=== PATIENT | female | born 1945 | race Caucasian/White ===

== ENCOUNTER 2016-05-11 10:09 | Emergency (ER) | payer MEDICARE, OTHER ==
--- NOTE | 2016-05-11 11:00 | ER Document Report ---
ED Medical Screen (RME) - General Chief Complaint: High Blood Sugar Stated Complaint: BLOOD SUGAR PROBLEMS Notes: 70-year-old female patient with type II diabetes reports one-week history of cough congestion which is getting worse. There is now a green to thick yellow sputum and nasal discharge. Feeling lightheaded. Now is having urinary frequency. She did get a flu shot this year. Her blood sugars have been running high for the past 2 days. She takes Lantus, metformin, and Glucovance with a total dose of 3000 mg per day of metformin. I have greeted and performed a rapid initial assessment of this patient. A comprehensive ED assessment and evaluation of the patient, analysis of test results and completion of the medical decision making process will be conducted by additional ED providers. TRAVEL OUTSIDE OF THE [place] IN LAST 30 DAYS: No - Related Data Allergies/Adverse Reactions: No Known Drug Allergies Allergy (Verified 05/11/16 10:21) Past Medical History - Past Medical History Cardiac Medical History: Reports: Hx Hypercholesterolemia Neurological Medical History: Denies: Hx Seizures Endocrine Medical History: Reports: Hx Diabetes Mellitus Type 1 Renal/ Medical History: Reports: Hx Kidney Stones. Denies: Hx Peritoneal Dialysis GI Medical History: Reports: Hx Gastroesophageal Reflux Disease Past Surgical History: Reports: Hx Kidney (Renal Surgery) - stents Physical Exam - Vital signs Vitals: Temp Pulse Resp BP Pulse Ox 98.3 F 88 16 137/79 H 97 05/11/16 10:21 05/11/16 10:21 05/11/16 10:21 05/11/16 10:21 05/11/16 10:21 Course - Vital Signs Vital signs: Temp Pulse Resp BP Pulse Ox 98.3 F 88 16 137/79 H 97 05/11/16 10:21 05/11/16 10:21 05/11/16 10:21 05/11/16 10:21 05/11/16 10:21
--- NOTE | 2016-05-11 11:25 | ER Document Report ---
ED Blood Sugar Problem - General Chief Complaint: High Blood Sugar Stated Complaint: BLOOD SUGAR PROBLEMS Mode of Arrival: Ambulatory Information source: Patient TRAVEL OUTSIDE OF THE [place] IN LAST 30 DAYS: No - HPI Onset: Last week Onset/Duration: Gradual Quality of pain: Achy Severity: Mild Associated symptoms: Weakness. denies: Confusion, Increased thirst, Frequent urination, Sweating Similar symptoms previously: Yes - NOT RECENT Recently seen / treated by doctor: No - Related Data Allergies/Adverse Reactions: No Known Drug Allergies Allergy (Verified 05/11/16 10:21) Past Medical History - General Information source: Patient - Social History Smoking Status: Never Smoker Cigarette use (# per day): No Chew tobacco use (# tins/day): No Frequency of alcohol use: None Drug Abuse: None Lives with: Family Family History: Reviewed & Not Pertinent, Other - Gallbladder disease Patient has suicidal ideation: No Patient has homicidal ideation: No - Past Medical History Cardiac Medical History: Reports: Hx Hypercholesterolemia Pulmonary Medical History: Reports: None EENT Medical History: Reports: None Neurological Medical History: Reports: None. Denies: Hx Seizures Endocrine Medical History: Reports: Hx Diabetes Mellitus Type 1 Renal/ Medical History: Reports: Hx Kidney Stones. Denies: Hx Peritoneal Dialysis GI Medical History: Reports: Hx Gastroesophageal Reflux Disease Psychiatric Medical History: Reports: None Past Surgical History: Reports: Hx Kidney (Renal Surgery) - stents - Immunizations Hx Pneumococcal Vaccination: 08/07/09 Review of Systems - Review of Systems Constitutional: denies: Chills, Fever EENT: See HPI, Tearing, Nose congestion, Sinus pressure, Sinus discharge. denies: Ear pain, Throat pain Cardiovascular: No symptoms reported Respiratory: Cough. denies: Sputum Gastrointestinal: No symptoms reported Genitourinary: Dysuria, Frequency Female Genitourinary: No symptoms reported, Post menopausal Musculoskeletal: No symptoms reported Skin: No symptoms reported Neurological/Psychological: No symptoms reported Physical Exam - Vital signs Vitals: Temp Pulse Resp BP Pulse Ox 98.3 F 88 16 137/79 H 97 05/11/16 10:21 05/11/16 10:21 05/11/16 10:21 05/11/16 10:21 05/11/16 10:21 Interpretation: Normal. No: Tachycardic, Tachypneic - General General appearance: Appears well, Alert In distress: None - HEENT Head: Normocephalic Eyes: Normal Conjunctiva: Normal Ears: Normal Nasal: Normal Mouth/Lips: Normal Pharynx: Post nasal drainage Neck: Normal - Respiratory Respiratory status: No respiratory distress Breath sounds: Normal - Cardiovascular Rhythm: Regular Heart sounds: Normal auscultation Murmur: No - Abdominal Inspection: Normal Distension: No distension Bowel sounds: Normal - Extremities General upper extremity: Normal inspection General lower extremity: Normal inspection - Neurological Neuro grossly intact: Yes Cognition: Normal Orientation: AAOx4 - Psychological Associated symptoms: Normal affect, Normal mood - Skin Skin Temperature: Warm Skin Moisture: Dry Skin Color: Normal Skin Turgor: Elastic Course - Vital Signs Vital signs: Temp Pulse Resp BP Pulse Ox 98.3 F 88 16 137/79 H 97 05/11/16 10:21 05/11/16 10:21 05/11/16 10:21 05/11/16 10:21 05/11/16 10:21 - Laboratory Result Diagrams: 05/11/16 11:15 05/11/16 11:15 Laboratory results interpreted by me: 05/11/16 05/11/16 05/11/16 11:15 11:15 11:15 BUN 21 H Glucose 122 H Hemoglobin A1c % 6.3 H Urine Protein 100 H Urine Nitrite POSITIVE H Ur Leukocyte Esterase MODERATE H Discharge - Discharge Clinical Impression: Urinary tract infection Qualifiers: Urinary tract infection type: acute cystitis Hematuria presence: without hematuria Qualified Code(s): N30.00 - Acute cystitis without hematuria Sinusitis Qualifiers: Sinusitis location: unspecified location Chronicity: subacute Qualified Code(s) : J01.90 - Acute sinusitis, unspecified Condition: Stable Disposition: HOME, SELF-CARE Instructions: Trimethoprim-Sulfa ([facility]), Urinary Tract Infection ([facility]), IV Antibiotics ([facility]), Sinusitis ([facility]) Additional Instructions: REST, DRINK PLENTY OF FLUIDS. TAKE SEPTRA DIRECTED UNTIL IT'S ALL GONE (2 WEEKS). CONTINUE YOUR USUAL MEDS. FOLLOW UP WITH YOUR PRIMARY CARE PROVIDER. Prescriptions: Sulfamethoxazole/Trimethoprim [Sulfamethoxazole-Tmp Ds Tablet] 1 each PO BID # 30 tablet Referrals: SIMIN KHALIL MD [Primary Care Provider] - Follow up as needed
[2016-05-11 11:28] LABS: ABSOLUTE EOSINOPHILS # (AUTO) 0.1 10^3/uL (0.0-0.6); ABSOLUTE LYMPHOCYTES (AUTO) 1.8 10^3/uL (0.5-4.7); ABSOLUTE MONOCYTES (AUTO) 0.7 10^3/uL (0.1-1.4); ABSOLUTE NEUT (AUTO) 5.4 10^3/uL (1.7-8.2); BASOPHILS % (AUTO) 0.6 % (0-2); EOSINOPHILS % (AUTO) 1.5 % (0-6); HEMATOCRIT 40.5 % (36.0-47.0); HEMOGLOBIN 13.8 g/dL (12.0-15.5); HGB HCT DIFFERENCE 0.9; LYMPHOCYTES % (AUTO) 22.7 % (13-45); MEAN CORPUSCULAR HEMOGLOBIN 30.8 pg (27.0-33.4); MEAN CORPUSCULAR HGB CONC 34.2 g/dL (32.0-36.0); MEAN CORPUSCULAR VOLUME 90 fl (80-97); MONOCYTES % (AUTO) 9.1 % (3-13); RED BLOOD COUNT 4.49 10^6/uL (3.72-5.28); RED CELL DISTRIBUTION WIDTH 13.2 % (11.5-14.0); SEGMENTED NEUTROPHILS % (AUTO) 66.1 % (42-78); WHITE BLOOD COUNT 8.1 10^3/uL (4.0-10.5)
[2016-05-11 11:33] LABS: APPEARANCE,URINE SLIGHTLY-CLOUDY; BILIRUBIN,URINE NEGATIVE (NEGATIVE); GLUCOSE, URINE NEGATIVE (NEGATIVE); KETONES,URINE NEGATIVE (NEGATIVE); LEUKOCYTE ESTERASE,URINE MODERATE (NEGATIVE); NITRITE,URINE POSITIVE (NEGATIVE); PROTEIN,URINE 100 mg/dL (NEGATIVE); URINE SPECIFIC GRAVITY 1.016; UROBILINOGEN,URINE NEGATIVE mg/dL (<2.0)
[2016-05-11 11:51] LABS: ALANINE AMINOTRANSFERASE 25 U/L (9-52); ALBUMIN 4.1 g/dL (3.5-5.0); ALKALINE PHOSPHATASE 61 U/L (38-126); ANION GAP 14 (5-19); ASPARTATE AMINO TRANSFERASE 16 U/L (14-36); BILIRUBIN,DIRECT 0.2 mg/dL (0.0-0.4); BILIRUBIN,TOTAL 0.5 mg/dL (0.2-1.3); BLOOD UREA NITROGEN 21 mg/dL (7-20); CALCIUM 10.2 mg/dL (8.4-10.2); CARBON DIOXIDE 27 mmol/L (22-30); CHLORIDE 104 mmol/L (98-107); CREATININE RESULT 0.68 mg/dL (0.52-1.25); GLUCOSE 122 mg/dL (75-110); POTASSIUM 4.1 mmol/L (3.6-5.0); SODIUM 144.9 mmol/L (137-145); TOTAL PROTEIN 6.9 g/dL (6.3-8.2)
[2016-05-11] MEDS ORDERED: CEFTRIAXONE 1 GM/D5W RTU 50 ML IV ONE (12:01)
[2016-05-11 13:44] VITALS: BP 119/65
== END 2016-05-11 13:45 | disposition home or self-care (01) ==
LOC: ER 10:09
DX: N30.00 Acute cystitis without hematuria (principal); J01.90 Acute sinusitis, unspecified; E78.00 Pure hypercholesterolemia, unspecified; E10.9 Type 1 diabetes mellitus without complications; Z87.442 Personal history of urinary calculi
CPT/HCPCS: 99284; 96365; 36415; 87086; 85025; 87088; 80053; 81001; 87186; 83036; 71020; J0696

== ENCOUNTER → 2016-06-14 | Outpatient (CLI) | payer MEDICARE, OTHER | LOC: WI 12:18 | PROVIDERS: ATTEND Family Medicine | DX: Z12.31 Encounter for screening mammogram for malignant neoplasm of breast (principal) | CPT/HCPCS: 77067; G0202 ==

== ENCOUNTER 2016-12-27 13:17 | Inpatient (IN) | payer MEDICARE, OTHER ==
[2016-12-27] MEDS ORDERED: NORMAL SALINE 1000 ML 1,000 ML IV ONE ×2 (13:35→15:43)
--- NOTE | 2016-12-27 13:36 | ER Document Report ---
ED Medical Screen (RME) - General Chief Complaint: Fever Stated Complaint: FEVER Time Seen by Provider: 12/27/16 13:35 Notes: Patient has fever and mid back pain as well as a mild cough. She also has some nausea. TRAVEL OUTSIDE OF THE [place] IN LAST 30 DAYS: No - Related Data Allergies/Adverse Reactions: No Known Drug Allergies Allergy (Verified 12/27/16 13:20) Home Medications: Current Home Medications Exenatide Microspheres [Bydureon Pen] 2 mg SQ Q7D 12/27/16 [History] Glyburide 5 mg PO DAILY 12/27/16 [History] Metformin HCl [Metformin HCl] 1 tab PO BID 12/27/16 [History] Past Medical History - Past Medical History Cardiac Medical History: Reports: Hx Hypercholesterolemia, Hx Hypertension Neurological Medical History: Denies: Hx Seizures Endocrine Medical History: Reports: Hx Diabetes Mellitus Type 1 Renal/ Medical History: Reports: Hx Kidney Stones. Denies: Hx Peritoneal Dialysis GI Medical History: Reports: Hx Gastroesophageal Reflux Disease Past Surgical History: Reports: Hx Appendectomy, Hx Kidney (Renal Surgery) - stents Physical Exam - Vital signs Vitals: Temp Pulse Resp BP Pulse Ox 98.3 F 119 H 20 131/89 H 94 12/27/16 13:20 12/27/16 13:20 12/27/16 13:20 12/27/16 13:20 12/27/16 13:20 Course - Vital Signs Vital signs: Temp Pulse Resp BP Pulse Ox 98.3 F 119 H 20 131/89 H 94 12/27/16 13:20 12/27/16 13:20 12/27/16 13:20 12/27/16 13:20 12/27/16 13:20
--- NOTE | 2016-12-27 14:27 | ER Document Report ---
ED Fever - General Chief Complaint: Fever Stated Complaint: FEVER Time Seen by Provider: 12/27/16 13:35 Notes: The patient is a 71-year-old female who presents with 1 day of fever up to 102.7 and right flank pain. She also has nasal congestion and a dry cough. Patient is noticing intermittent dysuria, but denies shortness of breath, rash, recent travel, diarrhea, constipation, abdominal pain, chest pain, leg swelling , headache, neck stiffness or sick contacts. TRAVEL OUTSIDE OF THE [place] IN LAST 30 DAYS: No - Related Data Allergies/Adverse Reactions: No Known Drug Allergies Allergy (Verified 12/27/16 13:20) Home Medications: Current Home Medications Exenatide Microspheres [Bydureon Pen] 2 mg SQ Q7D 12/27/16 [History] Glyburide 5 mg PO DAILY 12/27/16 [History] Metformin HCl [Metformin HCl] 1 tab PO BID 12/27/16 [History] Past Medical History - General Information source: Patient - Social History Smoking Status: Never Smoker Chew tobacco use (# tins/day): No Frequency of alcohol use: None Drug Abuse: None Family History: Reviewed & Not Pertinent, Other - Gallbladder disease Patient has suicidal ideation: No Patient has homicidal ideation: No - Past Medical History Cardiac Medical History: Reports: Hx Hypercholesterolemia, Hx Hypertension Neurological Medical History: Denies: Hx Seizures Endocrine Medical History: Reports: Hx Diabetes Mellitus Type 1, Hx Diabetes Mellitus Type 2 Renal/ Medical History: Reports: Hx Kidney Stones. Denies: Hx Peritoneal Dialysis GI Medical History: Reports: Hx Gastroesophageal Reflux Disease Past Surgical History: Reports: Hx Appendectomy, Hx Kidney (Renal Surgery) - stents - Immunizations Hx Pneumococcal Vaccination: 08/07/09 Review of Systems - Review of Systems Notes: REVIEW OF SYSTEMS: CONSTITUTIONAL: +fevers, -chills EENT: -eye pain, -difficulty swallowing, -nasal congestion CARDIOVASCULAR:-chest pain, -syncope. RESPIRATORY: +cough, -SOB GASTROINTESTINAL: -abdominal pain, -nausea, -vomiting, -diarrhea GENITOURINARY: +dysuria, -hematuria MUSCULOSKELETAL: +back pain, -neck pain SKIN: -rash or skin lesions. HEMATOLOGIC: -easy bruising or bleeding. LYMPHATIC: -swollen, enlarged glands. NEUROLOGICAL: -altered mental status or loss of consciousness, -headache, - neurologic symptoms PSYCHIATRIC: -anxiety, -depression. ALL OTHER SYSTEMS REVIEWED AND NEGATIVE. Physical Exam - Vital signs Vitals: Temp Pulse Resp BP Pulse Ox 98.3 F 119 H 20 131/89 H 94 12/27/16 13:20 12/27/16 13:20 12/27/16 13:20 12/27/16 13:20 12/27/16 13:20 - Notes Notes: PHYSICAL EXAMINATION: GENERAL: Well-appearing, well-nourished and in no acute distress. HEAD: Atraumatic, normocephalic. EYES: Pupils equal round and reactive to light, extraocular movements intact, sclera anicteric, conjunctiva are normal. ENT: nares patent, oropharynx clear without exudates. Moist mucous membranes. NECK: Normal range of motion, supple without lymphadenopathy LUNGS: Breath sounds clear to auscultation bilaterally and equal. No wheezes rales or rhonchi. HEART: Tachycardia. ABDOMEN: Soft, nontender, normoactive bowel sounds. No guarding, no rebound. No masses appreciated. BACK: Right CVA tenderness. EXTREMITIES: Normal range of motion, no pitting or edema. No cyanosis. NEUROLOGICAL: Cranial nerves grossly intact. Normal speech, normal gait. Normal sensory and motor exams. PSYCH: Normal mood, normal affect. SKIN: Warm, Dry, normal turgor, no rashes or lesions noted. Course - Re-evaluation Re-evalutation: Patient appears very well when she is sitting. She has right CVA tenderness, fever, tachycardia and evidence of a UTI on urinalysis. Will begin Rocephin for presumed pyelonephritis. Her lactate is also normal. Pt remains tachycardic and she becomes near syncopal when she stands. She has positive orthostatic vital signs. Due to the near syncope and pyelonephritis, will admit patient to the hospital for IV Abx, IV fluids and further monitoring. Her PMD is Dr. Hamilton. 12/27/16 17:[address] Johnson and will admit patient as Inpatient to [facility]. - Vital Signs Vital signs: Temp Pulse Resp BP Pulse Ox 98.3 F 122 H 20 149/91 H 94 12/27/16 13:20 12/27/16 17:00 12/27/16 13:20 12/27/16 17:00 11/21/17 13:20 - Laboratory Result Diagrams: 12/27/16 14:10 12/27/16 14:10 Laboratory results interpreted by me: 12/27/16 12/27/16 12/27/16 13:45 14:10 14:10 Lymphocytes % 9.7 L VBG pH 7.46 H VBG pCO2 33.6 L Urine Protein 30 H Ur Leukocyte Esterase MODERATE H - Diagnostic Test Radiology reviewed: Image reviewed, Reports reviewed Radiology results interpreted by me: CXR: NAD Discharge - Discharge Clinical Impression: Pyelonephritis, Orthostatic hypotension Condition: Fair Disposition: ADMITTED INPATIENT Admitting Provider: Hospitalist - [place] [facility] Admitted: Telemetry Additional Instructions: PYELONEPHRITIS: Your evaluation shows evidence of pyelonephritis. This is an infection in the kidney. Typical symptoms are fever, pain in the flank, pain on urination, and frequent urination. Many cases of pyelonephritis can be treated at home. Hospital care may be necessary for patients who are very ill, or elderly or . Pyelonephritis is treated with antibiotics. Be sure to take all the medication as prescribed. Drink plenty of liquids (about three quarts per day) . You may take acetaminophen for fever. You should feel significantly improved within two days. You should have a recheck of your urine in about one week to insure that the infection is gone. Return for a re-examination if your symptoms worsen in any way -- such as high fever, shaking chills, severe weakness or dizziness, severe pain, or inability to pass your urine. ANTIBIOTIC THERAPY: You have been given an antibiotic prescription. It's important that you take all the medication, unless instructed otherwise by your physician. Failure to complete the entire course can result in relapse of your condition. Common side effects of antibiotics include nausea, intestinal cramping, or diarrhea. Women may develop vaginal yeast infections, and babies can get yeast (thrush) in the mouth following the use of antibiotics. Contact your physician if you develop significant side effects from this medication. Allergy to this antibiotic can result in hives, wheezing, faintness, or itching. If symptoms of allergy occur, stop the medication and call the doctor. ROCEPHIN: You have been given an injection of an antibiotic called Rocephin ( ceftriaxone). Sometimes the injection must be combined with antibiotic pills. For some infections, such as an uncomplicated ear infection, Rocephin provides all the antibiotic that's needed. The antibiotic will be in your body for about two days. For serious infections, we usually repeat doses of Rocephin daily. Side effects are very unusual following a shot. Women may develop vaginal yeast infections, and babies can get yeast (thrush) in the mouth following the use of antibiotics. Contact your physician if you have symptoms with this medication. Allergy to this antibiotic can result in hives, wheezing, faintness, or itching. If symptoms of allergy occur, call the doctor at once. CEPHALEXIN: The antibiotic you've been prescribed is a member of the cephalosporin class. This type of antibiotic covers a wide variety of infections, including those of the skin, lungs, and urinary tract. It's useful for staph infections. This antibiotic is slightly similar to the penicillin family. In rare cases , a person who is allergic to penicillin will also be allergic to this medication. If you have had a severe allergic reaction to penicillin, and have not taken this antibiotic since that time, notify your doctor. Antibiotics which cover many germs ("broad spectrum" antibiotics) are more likely to cause diarrhea or "yeast" infections. Women prone to vaginal yeast problems may suffer an attack after taking this antibiotic. In infants, oral thrush (white spots "stuck" on the cheek) or yeast diaper rash may result. See your doctor if these problems occur. Call at once if you develop itching, hives , shortness of breath, or lightheadedness. USE OF ACETAMINOPHEN (Tylenol): Acetaminophen may be taken for pain relief or fever control. It's much safer than aspirin, offering a wider range of "safe" dosages. It is safe during . Some brand names are Tylenol, Panadol, Datril, Anacin 3, Tempra, and Liquiprin. Acetaminophen can be repeated every four hours. The following are maximum recommended dosages: >89 pounds or adults 650 mg to 900 mg Acetaminophen can be repeated every four hours. Maximum dose not to exceed 4000 mg a day. FOLLOW-UP CARE: If you have been referred to a physician for follow-up care, call the physician s office for an appointment as you were instructed or within the next two days. If you experience worsening or a significant change in your symptoms, notify the physician immediately or return to the Emergency Department at any time for re-evaluation. Prescriptions: Cephalexin Monohydrate [Keflex 500 mg Capsule] 500 mg PO TID 7 Days capsule Forms: Elevated Blood Pressure Referrals: SIMIN HAMILTON MD [Primary Care Provider] - Follow up as needed
[2016-12-27 14:29] LABS: ABSOLUTE LYMPHOCYTES (AUTO) 0.9 10^3/uL (0.5-4.7); ABSOLUTE MONOCYTES (AUTO) 1.1 10^3/uL (0.1-1.4); ABSOLUTE NEUT (AUTO) 7.4 10^3/uL (1.7-8.2); BASOPHILS % (AUTO) 0.4 % (0-2); EOSINOPHILS % (AUTO) 0.3 % (0-6); HEMATOCRIT 40.4 % (36.0-47.0); HEMOGLOBIN 14.1 g/dL (12.0-15.5); HGB HCT DIFFERENCE 1.9; LYMPHOCYTES % (AUTO) 9.7 % (13-45); MEAN CORPUSCULAR HEMOGLOBIN 31.3 pg (27.0-33.4); MEAN CORPUSCULAR VOLUME 89 fl (80-97); MONOCYTES % (AUTO) 11.9 % (3-13); RED BLOOD COUNT 4.52 10^6/uL (3.72-5.28); RED CELL DISTRIBUTION WIDTH 13.8 % (11.5-14.0); SEGMENTED NEUTROPHILS % (AUTO) 77.7 % (42-78); VENOUS BLOOD BASE EXCESS 0.3 mmol/L; VENOUS BLOOD HCO3 23.4 mmol/L (20-32); VENOUS BLOOD PCO2 33.6 mmHg (35-63); VENOUS BLOOD PH 7.46 (7.30-7.42); WHITE BLOOD COUNT 9.5 10^3/uL (4.0-10.5)
[2016-12-27 14:44] LABS: APPEARANCE,URINE SLIGHTLY-CLOUDY; BILIRUBIN,URINE NEGATIVE (NEGATIVE); GLUCOSE, URINE NEGATIVE (NEGATIVE); KETONES,URINE NEGATIVE (NEGATIVE); LEUKOCYTE ESTERASE,URINE MODERATE (NEGATIVE); NITRITE,URINE NEGATIVE (NEGATIVE); PROTEIN,URINE 30 mg/dL (NEGATIVE); URINE SPECIFIC GRAVITY 1.017; UROBILINOGEN,URINE NEGATIVE mg/dL (<2.0)
[2016-12-27] MEDS ORDERED: CEFTRIAXONE 1 GM/D5W RTU 1 GM/50 ML RTUPB IV ONE (14:46)
[2016-12-27 14:57] LABS: ALANINE AMINOTRANSFERASE 30 U/L (9-52); ALBUMIN 4.1 g/dL (3.5-5.0); ALKALINE PHOSPHATASE 59 U/L (38-126); ANION GAP 15 (5-19); ASPARTATE AMINO TRANSFERASE 21 U/L (14-36); BILIRUBIN,DIRECT 0.3 mg/dL (0.0-0.4); BILIRUBIN,TOTAL 0.7 mg/dL (0.2-1.3); BLOOD UREA NITROGEN 17 mg/dL (7-20); CALCIUM 9.2 mg/dL (8.4-10.2); CARBON DIOXIDE 24 mmol/L (22-30); CHLORIDE 103 mmol/L (98-107); CREATININE RESULT 0.82 mg/dL (0.52-1.25); GLUCOSE 88 mg/dL (75-110); POTASSIUM 3.7 mmol/L (3.6-5.0); SODIUM 141.7 mmol/L (137-145); TOTAL PROTEIN 6.6 g/dL (6.3-8.2)
--- NOTE | 2016-12-27 15:23 | RADIOLOGY REPORT (SQ) ---
EXAM DESCRIPTION: CHEST PA/LAT COMPLETED DATE/TIME: 12/27/2016 3:11 pm REASON FOR STUDY: fever/cough COMPARISON: 05/11/2016 EXAM PARAMETERS: NUMBER OF VIEWS: two views TECHNIQUE: Digital Frontal and Lateral radiographic views of the chest acquired. RADIATION DOSE: NA LIMITATIONS: none FINDINGS: LUNGS AND PLEURA: No opacities, masses or pneumothorax. No pleural effusion. MEDIASTINUM AND HILAR STRUCTURES: No masses or contour abnormalities. HEART AND VASCULAR STRUCTURES: Heart normal size. No evidence for failure. BONES: No acute findings. HARDWARE: None in the chest. OTHER: No other significant finding. IMPRESSION: NO SIGNIFICANT RADIOGRAPHIC FINDING IN THE CHEST. TECHNICAL DOCUMENTATION: JOB ID: [id number] [employer]- All Rights Reserved
[2016-12-27] MEDS ORDERED: IBUPROFEN 600 MG TABLET PO ONE (15:43)
[2016-12-27] MEDS ORDERED: ACETAMINOPHEN 325 MG TABLET PO ONE (15:43)
[2016-12-27] MEDS ORDERED: ONDANSETRON HCL INJ/PF 4 MG/2 ML SDV IV PRN (17:23)
[2016-12-27] MEDS ORDERED: MAG HYDROX/AL HYDROX/SIMETH SUSP 30 ML UDCUP PO PRN (17:23)
[2016-12-27] MEDS ORDERED: ACETAMINOPHEN 325 MG TABLET PO PRN (17:30)
[2016-12-27] MEDS ORDERED: DICYCLOMINE HCL 10 MG CAPSULE PO PRN (17:32)
[2016-12-27] MEDS ORDERED: DEXTROSE 50%-WATER 25 GM/50 ML DISP.SYRIN IV PRN ×2 (17:34)
[2016-12-27] MEDS ORDERED: DEXTROSE 40% GEL 15 GM TUBE PO PRN ×2 (17:34)
[2016-12-27] MEDS ORDERED: GLUCAGON,HUMAN RECOMB 1 MG INJ IM PRN (17:34)
[2016-12-27] MEDS ORDERED: MAGNESIUM 200 MG PO SCH (18:00)
[2016-12-27] MEDS: NORMAL SALINE 1000 ML 1,000 ML IV PRN (18:29)
[2016-12-27] MEDS ORDERED: SIMVASTATIN 40 MG TABLET PO SCH (22:00)
[2016-12-27] MEDS: INSULIN LISPRO 100 UNIT/ML 3 ML VIAL SUBCUT PRN (23:07)
[2016-12-28] MEDS: NORMAL SALINE 1000 ML 1,000 ML IV PRN ×2 (05:27→14:24)
[2016-12-28] MEDS ORDERED: LEVOTHYROXINE SODIUM 0.05 MG TABLET PO SCH (06:00)
[2016-12-28] MEDS ORDERED: LANSOPRAZOLE 30 MG TAB.RAP.DR PO SCH (06:00)
[2016-12-28] MEDS ORDERED: LIOTHYRONINE SODIUM 25 MCG TABLET PO SCH (06:00)
[2016-12-28] MEDS ORDERED: INFLUENZA ADLT QUAD (36MOS+) 2017-18 VAC 0.5 ML SYR IM PRN (06:12)
[2016-12-28 06:44] LABS: ANION GAP 13 (5-19); BLOOD UREA NITROGEN 13 mg/dL (7-20); CALCIUM 8.3 mg/dL (8.4-10.2); CARBON DIOXIDE 21 mmol/L (22-30); CHLORIDE 106 mmol/L (98-107); GLUCOSE 147 mg/dL (75-110); POTASSIUM 3.6 mmol/L (3.6-5.0); SODIUM 140.4 mmol/L (137-145)
--- NOTE | 2016-12-28 07:36 | PDOC H&P ---
History of Present Illness Admission Date/PCP: 12/27/16 17:26 SIMIN KHALIL MD Patient complains of: Fever History of Present Illness: CLARIBEL BRUSH is a 71 year old female who presented with a 1 day complaint of fever. Patient states she had a fever of 100.1 during the day for which she took tylenol. During the night she also has a fever but did not take her temperature. Patient states she just took another tylenol. She states that she recently had visitors at the house who had colds. She was concerned that she had come down with something similar, although, she denies and respiratory symptoms. She states she did not feel well and had not eaten much. Patient denies any pain or urination or frequent urination. When asked about urine infections, she states she has had multiple. In the ED patient labs were normal; however , her UA was concerning for a possible UTI. Patient was given ceftriaxone. They attempted to discharge the patient for the ED however she had symptomatic orthostatic hypotension. Hospitalist was called to admit patient for IV hydration and treatment of her UTI. Past Medical History Cardiac Medical History: Reports: Hyperlipidema, Hypertension Neurological Medical History: Denies: Seizures Endocrine Medical History: Reports: Diabetes Mellitus Type 1, Diabetes Mellitus Type 2 GI Medical History: Reports: Gastroesophageal Reflux Disease Past Surgical History Past Surgical History: Reports: Appendectomy Social History Information Source: Patient Smoking Status: Never Smoker Frequency of Alcohol Use: None Hx Recreational Drug Use: No Hx Prescription Drug Abuse: No - Advance Directive Resuscitation Status: Full Code Family History Family History: Other - Gallbladder disease, CAD Parental Family History Reviewed: No Children Family History Reviewed: No Sibling(s) Family History Reviewed.: No Medication/Allergy Home Medications: Allopurinol [Zyloprim 300 Mg Tablet] 300 mg PO DAILY 09/01/11 Aspirin [Aspirin EC 81 mg Tablet] 81 mg PO DAILY 09/01/11 Levothyroxine Sodium [Synthroid 50 Mcg Tablet] 50 mcg PO DAILY 09/01/11 Simvastatin [Zocor 40 mg Tablet] 40 mg PO QHS 09/01/11 Alpha Lipoic Acid [Alpha Lipoic Acid 200 mg Tablet] 200 mg PO DAILY 08/14/14 Cetirizine HCl [All Day Allergy] 10 mg PO DAILY 08/14/14 Cyanocobalamin (Vitamin B-12) [Vitamin B-12] 1,000 mg PO DAILY 08/14/14 Dicyclomine HCl [Bentyl 10 mg Capsule] 10 mg PO Q6HP PRN 08/14/14 Esomeprazole Magnesium [Nexium] 40 mg PO DAILY 08/14/14 Insulin Glargine,Hum.rec.anlog [Lantus] 20 units SUBCUT DAILY 08/14/14 Liothyronine Sodium [Cytomel] 25 mcg PO DAILY 08/14/14 Magnesium [Magnesium Gluconate] 200 mg PO TID 08/14/14 Potassium Chloride [Klor-Con 10 Meq Tablet.sa] 20 meq PO DAILY 08/14/14 Ubidecarenone/Vit E Acet [Co Q-10 100 mg Softgel] 100 mg PO DAILY 08/14/14 Valsartan/Hydrochlorothiazide [Valsartan-Hctz 160-25 mg Tab] 160 mg PO DAILY 10/21 Sulfamethoxazole/Trimethoprim [Sulfamethoxazole-Tmp Ds Tablet] 1 each PO BID # 30 tablet 05/11/16 Cephalexin Monohydrate [Keflex 500 mg Capsule] 500 mg PO TID 7 Days capsule Exenatide Microspheres [Bydureon Pen] 2 mg SQ Q7D 12/27/16 Glyburide 5 mg PO DAILY 12/27/16 Metformin HCl [Metformin HCl] 1 tab PO BID 12/27/16 Allergies/Adverse Reactions: No Known Drug Allergies Allergy (Verified 12/27/16 13:20) Review of Systems Constitutional: PRESENT: anorexia, fever(s). ABSENT: chills, headache(s), weight gain, weight loss Eyes: ABSENT: visual disturbances Ears: ABSENT: hearing changes Cardiovascular: ABSENT: chest pain, dyspnea on exertion, edema, orthropnea, palpitations Respiratory: ABSENT: cough, hemoptysis Gastrointestinal: ABSENT: abdominal pain, constipation, diarrhea, hematemesis, hematochezia, nausea, vomiting Genitourinary: ABSENT: dysuria, hematuria Musculoskeletal: PRESENT: back pain. ABSENT: joint swelling Integumentary: ABSENT: rash, wounds Neurological: ABSENT: abnormal gait, abnormal speech, confusion, dizziness, focal weakness, syncope Psychiatric: ABSENT: anxiety, depression, homidical ideation, suicidal ideation Endocrine: ABSENT: cold intolerance, heat intolerance, polydipsia, polyuria Hematologic/Lymphatic: ABSENT: easy bleeding, easy bruising Physical Exam Vital Signs: Temp Pulse Resp BP Pulse Ox 98.3 F 122 H 20 149/91 H 94 12/27/16 13:20 12/27/16 17:00 12/27/16 13:20 12/27/16 17:00 12/27/16 13:20 General appearance: PRESENT: no acute distress, well-developed, well-nourished Head exam: PRESENT: atraumatic, normocephalic Eye exam: PRESENT: EOMI. ABSENT: scleral icterus Ear exam: PRESENT: normal external ear exam Mouth exam: PRESENT: moist Neck exam: ABSENT: carotid bruit, JVD, lymphadenopathy, thyromegaly Respiratory exam: PRESENT: clear to auscultation diane. ABSENT: rales, rhonchi, wheezes Cardiovascular exam: PRESENT: RRR. ABSENT: diastolic murmur, rubs, systolic murmur Pulses: PRESENT: normal dorsalis pedis pul Vascular exam: PRESENT: normal capillary refill GI/Abdominal exam: PRESENT: normal bowel sounds, soft. ABSENT: distended, guarding, mass, organolmegaly, rebound, tenderness Rectal exam: PRESENT: deferred Extremities exam: PRESENT: full ROM. ABSENT: calf tenderness, clubbing, pedal edema Neurological exam: PRESENT: alert, awake, oriented to person, oriented to place , oriented to time, oriented to situation, CN II-XII grossly intact. ABSENT: motor sensory deficit Psychiatric exam: PRESENT: appropriate affect, normal mood. ABSENT: homicidal ideation, suicidal ideation Skin exam: PRESENT: dry, intact, pallor, warm. ABSENT: cyanosis, rash Results Impressions: Chest X-Ray 12/27/16 13:36 IMPRESSION: NO SIGNIFICANT RADIOGRAPHIC FINDING IN THE CHEST. Assessment & Plan - Diagnosis (1) UTI (urinary tract infection) Is this a current diagnosis for this admission?: Yes Plan: Most likely a early cystitis. 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 Will continue ceftriaxone. Urine cultures pending. (2) HLD (hyperlipidemia) Is this a current diagnosis for this admission?: Yes Plan: Continue statin. (3) HTN (hypertension) Qualifiers: Hypertension type: essential hypertension Qualified Code(s): I10 - Essential (primary) hypertension Is this a current diagnosis for this admission?: Yes Plan: Patient is actually hypotenisve with orthostasis. Will hold bp medications and hydrate overnight. (4) Obesity (BMI 30.0-34.9) Is this a current diagnosis for this admission?: Yes Plan: Patient counseled on diet and physical activity. (5) Orthostatic hypotension Is this a current diagnosis for this admission?: Yes Plan: Most likely due to intravascular depletions. Patient has been febrile, not eating or drinking well and taking diuretic. Will hydrate IV fluids at 125cc/ hr and repeat orthostatics in the am. patient is also on telemetry. (6) Diabetes Qualifiers: Diabetes mellitus type: type 2 Diabetes mellitus complication status: without complication Is this a current diagnosis for this admission?: Yes Plan: Will continue home dose of long acting insulin and start SSI. (7) Hypothyroid Is this a current diagnosis for this admission?: Yes Plan: Continue thyroid replacement. - Time Time Spent: 30 to 50 Minutes Anticipated discharge: Home Within: within 24 hours - Inpatient Certification Medical Necessity: Need For IV Fluids
[2016-12-28] MEDS ORDERED: CEFTRIAXONE 1 GM/D5W RTU 1 GM/50 ML RTUPB IV SCH (10:00)
[2016-12-28] MEDS ORDERED: INSULIN GLARGINE,HUM.REC.ANLOG 1,000 UNIT/10 ML UNIT SUBCUT SCH (10:00)
[2016-12-28] MEDS ORDERED: ASPIRIN 81 MG TABLET, ENT COATED PO SCH (10:00)
[2016-12-28] MEDS ORDERED: CYANOCOBALAMIN 1000 MG PO SCH (10:00)
[2016-12-28] MEDS ORDERED: (PENDING PHARMACY ID) (Cetirizine Hcl [All Day Allergy] 10 MG) PO SCH (10:00)
[2016-12-28] MEDS ORDERED: CETIRIZINE 10 MG TABLET PO SCH (10:00)
[2016-12-28] MEDS ORDERED: CYANOCOBALAMIN (VITAMIN B-12) 1,000 MCG TABLET PO SCH (10:00)
[2016-12-28] MEDS ORDERED: ALLOPURINOL 300 MG TABLET PO SCH (10:00)
[2016-12-28] MEDS ORDERED: POTASSIUM CHLORIDE 10 MEQ TABLET.SA PO SCH (10:00)
[2016-12-28] MEDS: INSULIN LISPRO 100 UNIT/ML 3 ML VIAL SUBCUT PRN (11:31)
[2016-12-28 16:54] VITALS: BP 100/52
--- NOTE | 2016-12-28 21:17 | PDOC DISCHARGE SUMMARY ---
General - Admit/Disc Date/PCP Admission Date/Primary Care Provider: 12/27/16 17:26 SMIIN KHALIL MD Discharge Date: 12/28/16 - Discharge Diagnosis (1) UTI (urinary tract infection) Is this a current diagnosis for this admission?: Yes (2) HLD (hyperlipidemia) Is this a current diagnosis for this admission?: Yes (3) HTN (hypertension) Is this a current diagnosis for this admission?: Yes (4) Obesity (BMI 30.0-34.9) Is this a current diagnosis for this admission?: Yes (5) Orthostatic hypotension Is this a current diagnosis for this admission?: Yes (6) Diabetes Is this a current diagnosis for this admission?: Yes (7) Hypothyroid Is this a current diagnosis for this admission?: Yes - Additional Information Resuscitation Status: Full Code Discharge Activity: Activity As Tolerated Home Medications: Allopurinol [Zyloprim 300 mg Tablet] 300 mg PO DAILY 09/01/11 Aspirin [Ecotrin 81 mg EC Tablet] 81 mg PO DAILY 09/01/11 Levothyroxine Sodium [Synthroid 0.05 mg Tablet] 50 mcg PO DAILY 09/01/11 Simvastatin [Zocor 40 mg Tablet] 40 mg PO QHS 09/01/11 Alpha Lipoic Acid [Alpha Lipoic Acid 200 mg Tablet] 200 mg PO DAILY 08/14/14 Cetirizine HCl [All Day Allergy] 10 mg PO DAILY 08/14/14 Cyanocobalamin (Vitamin B-12) [Vitamin B-12] 1,000 mg PO DAILY 08/14/14 Dicyclomine HCl [Bentyl 10 mg Capsule] 10 mg PO Q6HP PRN 08/14/14 Esomeprazole Magnesium [Nexium] 40 mg PO DAILY 08/14/14 Insulin Glargine,Hum.rec.anlog [Lantus] 20 units SUBCUT DAILY 08/14/14 Liothyronine Sodium [Cytomel] 25 mcg PO DAILY 08/14/14 Magnesium [Magnesium Gluconate] 200 mg PO TID 08/14/14 Potassium Chloride [Klor-Con 10 Meq Tablet.sa] 20 meq PO DAILY 08/14/14 Ubidecarenone/Vit E Acet [Co Q-10 100 mg Softgel] 100 mg PO DAILY 08/14/14 Valsartan/Hydrochlorothiazide [Valsartan-Hctz 160-25 mg Tab] 160 mg PO DAILY 10/21 Sulfamethoxazole/Trimethoprim [Sulfamethoxazole-Tmp Ds Tablet] 1 each PO BID # 30 tablet 05/11/16 Exenatide Microspheres [Bydureon Pen] 2 mg SQ Q7D 12/27/16 Glyburide 5 mg PO DAILY 12/27/16 Metformin HCl 1 tab PO BID 12/27/16 Cephalexin Monohydrate [Keflex 500 mg Capsule] 500 mg PO BID 5 Days #10 capsule 12/28/16 History of Present Illness History of Present Illness: CLARIBEL BRUSH is a 71 year old female who presented with a 1 day complaint of fever and not feeling well. Patient found to have an abnormal UA consistent with UTI. Patient was given dose of ceftiraxone in the ED. Patient found to have symptomatic orthostasis. She was admitted for IV fluids and antibiotics. Hospital Course Hospital Course: Patient admitted for UTI and systomatic orthostatic hypotension. Patient as started on ceftriaxone. Patient has grown klebsiella in past that was susceptible to ceftriaxone. Patient urine growing GNR. Patient received 2 doses of ceftriaxone and will receive 5 days of keflex 500mg po bid. Patient was reassured that the infection was not in her kidney and that all her labs except for her UA were normal. Patient was found to been orthostatic and reported dizziness on standing. Patient blood pressure medication was held and patient received normal saline at 125cc/hr overnight. Patient symptoms resolved this morning. Will continue to follow up patient urine culture if the bacteria is not susceptible then the appropriate antibiotic will be called into her pharmacy [facility] [phone]. Physical Exam Vital Signs: Temp Pulse Resp BP Pulse Ox 98.5 F 99 20 100/52 L 93 12/28/16 16:52 12/28/16 16:52 12/28/16 16:52 12/28/16 16:52 12/28/16 16:52 Intake & Output 12/27/16 12/28/16 12/29/16 06:59 06:59 06:59 Intake Total 1296 Output Total 650 Balance 646 Weight 96.7 kg General appearance: PRESENT: no acute distress, morbidly obese Head exam: PRESENT: atraumatic, normocephalic Eye exam: PRESENT: conjunctiva pink, EOMI, PERRLA. ABSENT: scleral icterus Ear exam: PRESENT: normal external ear exam Mouth exam: PRESENT: moist, tongue midline Neck exam: ABSENT: carotid bruit, JVD, lymphadenopathy, thyromegaly Respiratory exam: PRESENT: clear to auscultation diane. ABSENT: rales, rhonchi, wheezes Cardiovascular exam: PRESENT: RRR. ABSENT: diastolic murmur, rubs, systolic murmur Pulses: PRESENT: normal dorsalis pedis pul Vascular exam: PRESENT: normal capillary refill GI/Abdominal exam: PRESENT: normal bowel sounds, soft. ABSENT: distended, guarding, mass, organolmegaly, rebound, tenderness Rectal exam: PRESENT: deferred Extremities exam: PRESENT: full ROM. ABSENT: calf tenderness, clubbing, pedal edema Neurological exam: PRESENT: alert, awake, oriented to person, oriented to place , oriented to time, oriented to situation, CN II-XII grossly intact. ABSENT: motor sensory deficit Psychiatric exam: PRESENT: appropriate affect, normal mood. ABSENT: homicidal ideation, suicidal ideation Skin exam: PRESENT: dry, intact, warm. ABSENT: cyanosis, rash Results Laboratory Results: 12/28/16 05:09 12/28/16 05:09 Sodium 140.4 Potassium 3.6 Chloride 106 Carbon Dioxide 21 L Anion Gap 13 BUN 13 Creatinine 0.70 Est GFR ( Amer) > 60 Est GFR (Non-Af Amer) > 60 Glucose 147 H Calcium 8.3 L Impressions: Chest X-Ray 12/27/16 13:36 IMPRESSION: NO SIGNIFICANT RADIOGRAPHIC FINDING IN THE CHEST. Qualifiers PATEINT BEING DISCHARGED WITH ANY OF THE FOLLOWING DIAGNOSIS?: No Plan Time Spent: Less than 30 Minutes
[2016-12-29] MEDS ORDERED: INSULIN GLARGINE,HUM.REC.ANLOG 1,000 UNIT/10 ML UNIT SUBCUT SCH (10:00)
== END 2016-12-28 17:45 | disposition home or self-care (01) | DRG 690 ==
LOC: ER 13:17 → EH 17:26 → 4N 21:00
PROVIDERS: ADMIT Internal Medicine; ATTEND Internal Medicine
PROC: 3E0234Z Introduction of Serum, Toxoid and Vaccine into Muscle, Percutaneous Approach (ICD-10-PCS; principal; 2016-12-28)
DX: N30.00 Acute cystitis without hematuria (principal); E78.5 Hyperlipidemia, unspecified; I10 Essential (primary) hypertension; E66.9 Obesity, unspecified; Z68.34 Body mass index [BMI] 34.0-34.9, adult; I95.1 Orthostatic hypotension; E11.9 Type 2 diabetes mellitus without complications; E03.9 Hypothyroidism, unspecified; B96.1 Klebsiella pneumoniae [K. pneumoniae] as the cause of diseases classified elsewhere; K21.9 Gastro-esophageal reflux disease without esophagitis; Z23 Encounter for immunization; Z79.82 Long term (current) use of aspirin; Z79.4 Long term (current) use of insulin; Z79.899 Other long term (current) drug therapy; Z82.49 Family history of ischemic heart disease and other diseases of the circulatory system
CPT/HCPCS: 36415; 71020; 80048; 80053; 81001; 82533; 82803; 82962; 83605; 85025; 87040; 87086; 87088; 87186; 90686; 96361; 96365; 99284; J0696; J1815; J2405; J7030

== ENCOUNTER 2017-06-08 15:58 | Emergency (ER) | payer MEDICARE, OTHER ==
[2017-06-08 16:21] VITALS: BP 125/74
--- NOTE | 2017-06-08 16:40 | ER Document Report ---
HPI - HPI Pain Level: 3 Notes: Patient is a 71-year-old female with a history of hypertension, diabetes, hypothyroid who presents to the ED complaining of a dry semi-productive cough 10 days. Patient states that she has been using some cold medicines with minimal relief. She still eating and drinking without difficulties. She is urinating normally and having normal bowel movements. Patient states that she is ambulatory without any chest pains and without development of dyspnea on exertion. She denies any drug allergies. Denies any smoking or other cardiopulmonary medical history. Denies any headache, fever, neck pain, URI, sore throat, chest pain, palpitations, syncope, shortness of breath, wheeze, dyspnea, abdominal pain, nausea/vomiting/diarrhea, urinary retention, dysuria, hematuria, or rash. - ROS Systems Reviewed and Negative: Yes All other systems reviewed and negative - REPRODUCTIVE Reproductive: DENIES: : Past Medical History - Social History Smoking Status: Never Smoker Family History: Other - Gallbladder disease, CAD - Past Medical History Cardiac Medical History: Reports: Hx Hypercholesterolemia, Hx Hypertension Neurological Medical History: Denies: Hx Seizures Endocrine Medical History: Reports: Hx Diabetes Mellitus Type 1, Hx Diabetes Mellitus Type 2 Renal/ Medical History: Reports: Hx Kidney Stones. Denies: Hx Peritoneal Dialysis GI Medical History: Reports: Hx Gastroesophageal Reflux Disease Psychiatric Medical History: Denies: Hx Depression Past Surgical History: Reports: Hx Appendectomy, Hx Kidney (Renal Surgery) - stents - Immunizations Hx Pneumococcal Vaccination: 08/07/09 Vertical Provider Document - CONSTITUTIONAL Agree With Documented VS: Yes Notes: PHYSICAL EXAMINATION: GENERAL: Well-appearing, well-nourished and in no acute distress. A&Ox4. Answers questions appropriately. Moves comfortably w/o notable distress HEAD: Atraumatic, normocephalic. EYES: Pupils equal round and reactive to light, extraocular movements intact, sclera anicteric, conjunctiva are normal. ENT: EAC clear b/l. TM's intact b/l without erythema, fluid, or perforation. Nares patent and without discharge. oropharynx no erythema without exudates. No tonsilar hypertrophy without erythema or exudate. No palatine shift. Uvula midline. No tongue protrusion. No drooling, hoarseness, or airway compromise. Moist mucous membranes. No sinus tenderness. NECK: Normal range of motion, supple without lymphadenopathy. No rigidity/ meningismus. LUNGS: Breath sounds clear to auscultation bilaterally and equal. No wheezes rales or rhonchi. No retractions HEART: Regular rate and rhythm without murmurs, rubs, gallops. ABDOMEN: Soft, nontender, nondistended abdomen. No guarding, no rebound. No masses appreciated. Normal bowel sounds present. No CVA tenderness bilaterally. No hepatosplenomegaly. NEUROLOGICAL: Normal speech, normal gait. Normal sensory, motor exams PSYCH: Normal mood, normal affect. SKIN: Warm, Dry, normal turgor, no rashes or lesions noted. - INFECTION CONTROL TRAVEL OUTSIDE OF THE [place] IN LAST 30 DAYS: No Course - Re-evaluation Re-evalutation: 06/08/17 17:28 Patient is an afebrile, well-hydrated, 71-year-old female who presents to the ED with acute bronchitis, suspect viral. Vitals are acceptable. PE is otherwise unremarkable. Chest x-ray was unremarkable for any acute pathology. Patient has no tachycardia, tachypnea, or hypoxia. She is tolerating p.o. without difficulties. Lungs were clear to auscultation bilaterally. No other labs or imaging warranted at this time based on H&P. Low suspicion for any pneumothorax, respiratory compromise, severe dehydration, sepsis, meningitis, or other systemic emergent condition at this time. Patient is aware that her condition can change from initial presentation and she needs to monitor symptoms closely and seek medical attention for any acute changes. I will send her home with a pocket prescription for Zithromax she may begin with ongoing/ worsening symptoms 2-3 days. I will also send her home with a prescription for Tessalon Perles. Recommend conservative measures for symptoms. Recheck with your PCM in 3-5 days. Return to the ED with any worsening/concerning symptoms otherwise as reviewed in discharge. Patient is in agreement. - Vital Signs Vital signs: Temp Pulse Resp BP Pulse Ox 97.8 F 100 18 125/74 96 06/08/17 16:19 06/08/17 16:19 06/08/17 16:19 06/08/17 16:19 06/08/17 16:19 Discharge - Discharge Clinical Impression: Acute bronchitis Qualifiers: Bronchitis organism: unspecified organism Qualified Code(s): J20.9 - Acute bronchitis, unspecified Condition: Stable Disposition: HOME, SELF-CARE Instructions: Bronchitis ([facility]) Additional Instructions: Maintain adequate fluid intake Take meds as directed tylenol/ibuprofen as needed over the counter cold medication as needed for symptoms Humidified air may help Wash your hands regularly Wear a mask when coughing F/u: with your PCM in 3-5 days for a recheck Return to the ED with any fever, worsening pain, chest pain, palpitations, syncope, worsening ROCA, neck pain/stiffness, shortness of breath, wheezing, drooling, trouble swallowing/breathing, abdominal pain, n/v/d, rash, or worsening/concerning symptoms otherwise. Prescriptions: Benzonatate [Tessalon Perle 100 mg Capsule] 100 mg PO Q8HP PRN #15 cap PRN Reason: Azithromycin [Zithromax 250 mg Tablet] 250 mg PO ASDIR PRN #6 tablet PRN Reason: Referrals: Provider, Family [Other] - Follow up in 3-5 days
--- NOTE | 2017-06-08 17:24 | RADIOLOGY REPORT (SQ) ---
EXAM DESCRIPTION: CHEST 2 VIEWS COMPLETED DATE/TIME: 06/08/2017 4:44 pm REASON FOR STUDY: cough COMPARISON: December 2016 EXAM PARAMETERS: NUMBER OF VIEWS: two views TECHNIQUE: Digital Frontal and Lateral radiographic views of the chest acquired. RADIATION DOSE: NA LIMITATIONS: none FINDINGS: LUNGS AND PLEURA: No opacities, masses or pneumothorax. No pleural effusion. MEDIASTINUM AND HILAR STRUCTURES: No masses or contour abnormalities. HEART AND VASCULAR STRUCTURES: Heart normal size. No evidence for failure. BONES: No acute findings. HARDWARE: None in the chest. OTHER: No other significant finding. IMPRESSION: NO ACUTE RADIOGRAPHIC FINDING IN THE CHEST. TECHNICAL DOCUMENTATION: JOB ID: [id number] [employer] All Rights Reserved Reading location - IP/workstation name: [email or web address]
== END 2017-06-08 17:38 | disposition home or self-care (01) ==
LOC: ER 15:58
DX: J20.9 Acute bronchitis, unspecified (principal); E78.00 Pure hypercholesterolemia, unspecified; I10 Essential (primary) hypertension; E11.9 Type 2 diabetes mellitus without complications; Z87.442 Personal history of urinary calculi
CPT/HCPCS: 71046; 99283

== ENCOUNTER → 2017-06-15 | Outpatient (CLI) | payer MEDICARE, OTHER ==
--- NOTE | 2017-06-15 09:04 | WOMENS IMAGING REPORT ---
EXAM DESCRIPTION: BILAT SCREENING MAMMO W/CAD COMPLETED DATE/TIME: 06/15/2017 8:22 am REASON FOR STUDY: ROUTINE SCREENING;Z12.31 Z12.31 ENCNTR SCREEN MAMMOGRAM FOR MALIGNANT NEOPLASM OF [place]ZI COMPARISON: 2015, 2016 TECHNIQUE: Standard craniocaudal and mediolateral oblique views of each breast recorded using appssavvya l acquisition. LIMITATIONS: None. FINDINGS: No masses, calcifications or architectural distortion. No areas of suspicion. Read with the assistance of CAD. .[employer] - R2 [employer] Version 1.3 .[facility] - R2 Cenova Version 1.3 .[facility] - R2 Cenova Version 2.4 .[facility] [place] - R2 Cenova Version 2.4 .[facility] - R2 [employer] Specialist Version 9.2 IMPRESSION: NORMAL MAMMOGRAM. BIRADS 1. BREAST DENSITY: b. There are scattered areas of fibroglandular density. BIRAD: 1 NEGATIVE RECOMMENDATION: ROUTINE SCREENING COMMENT: The patient has been notified of the results by letter per SA requirements. Additional no tification policies are in place for contacting patient with suspicious or incomplete findings. Quality ID #[id number]: The [employer] recommends an annual screening mammogram for women aged 40 years or over. This facility utilizes a reminder system to ensure that all patients receive reminder letters, and/or direct phone calls for appointments. This includes reminders for routine scr eening mammograms, diagnostic mammograms, or other Breast Imaging Interventions when appropriate. Th is patient will be placed in the appropriate reminder system. The [employer] (ACR) has developed recommendations for screening MRI of the breast s in certain patient populations, to be used in conjunction with mammography. Breast MRI surveillanc e may be appropriate for women with more than 20% lifetime risk of developing breast cancer as deter mined by genetic testing, significant family history of the disease, or history of mantle radiation f or Hodgkins Disease. ACR Practice Guidelines 2008. TECHNICAL DOCUMENTATION: FINDING NUMBER: (1) ASSESSMENT: (1) JOB ID: [id number] [employer]- All Rights Reserved Reading location - IP/workstation name: [email or web address]
== END ==
LOC: WI 08:16
PROVIDERS: ATTEND Family Medicine
DX: Z12.31 Encounter for screening mammogram for malignant neoplasm of breast (principal)
CPT/HCPCS: 77067

== ENCOUNTER 2018-04-09 14:41 | Emergency (ER) | payer MEDICARE, OTHER ==
[2018-04-09] MEDS ORDERED: ASPIRIN 81 MG TABLET, CHEWABLE PO ONE (15:33)
[2018-04-09] MEDS ORDERED: IPRATROPIUM/ALBUTEROL 0.5-2.5 MG/3 ML AMPUL NEB ONE (15:34)
--- NOTE | 2018-04-09 15:38 | ER Document Report ---
ED General - General Chief Complaint: Chest Congestion Stated Complaint: COUGH,CONGESTION Time Seen by Provider: 04/09/18 15:28 Primary Care Provider: SIMIN KHALIL MD [Primary Care Provider] - Follow up as needed Mode of Arrival: Ambulatory Information source: Patient, [facility] Records Notes: 72-year-old female with hypertension, hyperlipidemia type 1 diabetes presents with complaint of cough, chest pain. Patient states that she has had a nonproductive cough for 3 weeks. She states that she has been trying [id number] medication without relief. She does report that several weeks ago she had fever, myalgia, nausea and vomiting which have improved but she still has this persistent cough. Patient states initially her chest pain was only with coughing but now describes a constant pressure that is located substernally and has been present for over 3 days. Patient has not been on any recent antibiotic use. She denies any leg swelling. TRAVEL OUTSIDE OF THE [place] IN LAST 30 DAYS: No - HPI Onset: Other Onset/Duration: Persistent Quality of pain: Pressure Severity: Mild Associated symptoms: Body/muscle aches, Nonproductive cough, Diarrhea, Fever, Nausea, Vomiting. denies: Hurts to breath, Shortness of breath Exacerbated by: Coughing Relieved by: Remaining still Similar symptoms previously: Yes Recently seen / treated by doctor: No - Related Data Allergies/Adverse Reactions: No Known Drug Allergies Allergy (Verified 04/09/18 14:43) Past Medical History - General Information source: Patient, [facility] Records - Social History Smoking Status: Never Smoker Chew tobacco use (# tins/day): No Frequency of alcohol use: Occasional Drug Abuse: None Lives with: Family Family History: Reviewed & Not Pertinent, Other Patient has suicidal ideation: No Patient has homicidal ideation: No - Past Medical History Cardiac Medical History: Reports: Hx Hypercholesterolemia, Hx Hypertension Neurological Medical History: Denies: Hx Seizures Endocrine Medical History: Reports: Hx Diabetes Mellitus Type 1, Hx Diabetes Mellitus Type 2 Renal/ Medical History: Reports: Hx Kidney Stones. Denies: Hx Peritoneal Dialysis GI Medical History: Reports: Hx Gastroesophageal Reflux Disease Psychiatric Medical History: Denies: Hx Depression Past Surgical History: Reports: Hx Appendectomy, Hx Kidney (Renal Surgery) - stents - Immunizations Hx Pneumococcal Vaccination: 08/07/09 Review of Systems - Review of Systems Notes: REVIEW OF SYSTEMS: CONSTITUTIONAL : Denies fever, chills, or sweats. Denies weight loss, recent hospitalizations. EENT: Denies visual changes, eye pain. Denies sore throat, oral lesions, difficulty swallowing. CARDIOVASCULAR: Denies palpitations. Denies lower extremity edema. RESPIRATORY: Denies shortness of breath, wheezing. GASTROINTESTINAL: Denies abdominal pain or distention. Denies blood in vomitus, stools, or per rectum. Denies black, tarry stools. Denies constipation. GENITOURINARY: Denies difficulty urinating, painful urination, frequency, blood in urine, or vaginal discharge. MUSCULOSKELETAL: Denies back or neck pain or stiffness. Denies joint pain or swelling. SKIN: Denies rash, lesions or sores. HEMATOLOGIC : Denies easy bruising or bleeding. LYMPHATIC: Denies swollen glands. NEUROLOGICAL: Denies confusion or altered mental status. Denies loss of consciousness. Denies dizziness or lightheadedness. Denies headache. Denies weakness or paralysis. Denies problems difficulty with ambulation, slurred sp eech. Denies sensory loss, numbness, or tingling. Denies seizures. PSYCHIATRIC: Denies anxiety or stress. Denies depression, suicidal ideation, or homicidal ideation. Denies visual or auditory hallucinations. Physical Exam - Vital signs Vitals: Temp Pulse Resp BP Pulse Ox 98.0 F 93 16 130/69 H 95 04/09/18 14:53 04/09/18 14:53 04/09/18 14:53 04/09/18 14:53 04/09/18 14:53 - Notes Notes: PHYSICAL EXAMINATION: GENERAL: Well-appearing, well-nourished and in no acute distress. HEAD: Atraumatic, normocephalic. EYES: Pupils equal round and reactive to light, extraocular movements intact, conjunctiva are normal. ENT: Nares patent, oropharynx clear without exudates. Moist mucous membranes. NECK: Normal range of motion, supple without lymphadenopathy LUNGS: Breath sounds clear to auscultation bilaterally and equal. Mild expiratory wheezing in the lower lung frausto bilaterally no accessory muscle use, no increased work of breathing, HEART: Regular rate and rhythm 2/4 systolic murmur ABDOMEN: Soft, nontender, nondistended abdomen. No guarding, no rebound. No masses appreciated. Female : deferred Musculoskeletal: Normal range of motion, no pitting or edema. No cyanosis. NEUROLOGICAL: Cranial nerves grossly intact. Normal speech, normal gait. Normal sensory, motor exams PSYCH: Normal mood, normal affect. SKIN: Warm, Dry, normal turgor, no rashes or lesions noted. Course - Re-evaluation Re-evalutation: Laboratory 04/09/18 04/09/18 04/09/18 16:14 16:14 16:14 WBC 6.2 RBC 4.44 Hgb 13.9 Hct 39.7 MCV 90 MCH 31.2 MCHC 34.9 RDW 13.0 Plt Count 167 Seg Neutrophils % 64.4 Lymphocytes % 23.1 Monocytes % 10.2 Eosinophils % 1.7 Basophils % 0.6 Absolute Neutrophils 4.0 Absolute Lymphocytes 1.4 Absolute Monocytes 0.6 Absolute Eosinophils 0.1 Absolute Basophils 0.0 Sodium 141.4 Potassium 3.7 Chloride 103 Carbon Dioxide 28 Anion Gap 10 BUN 21 H Creatinine 0.82 Est GFR ( Amer) > 60 Est GFR (Non-Af Amer) > 60 Glucose 69 L POC Glucose Calcium 9.6 Total Bilirubin 0.5 Direct Bilirubin 0.3 Neonat Total Bilirubin Not Reportable Neonat Direct Bilirubin Not Reportable Neonat Indirect Bili Not Reportable AST 22 ALT 25 Alkaline Phosphatase 56 Creatine Kinase 52 CK-MB (CK-2) 1.00 Troponin I < 0.012 Total Protein 6.6 Albumin 4.3 04/09/18 17:14 WBC RBC Hgb Hct MCV MCH MCHC RDW Plt Count Seg Neutrophils % Lymphocytes % Monocytes % Eosinophils % Basophils % Absolute Neutrophils Absolute Lymphocytes Absolute Monocytes Absolute Eosinophils Absolute Basophils Sodium Potassium Chloride Carbon Dioxide Anion Gap BUN Creatinine Est GFR ( Amer) Est GFR (Non-Af Amer) Glucose POC Glucose 104 Calcium Total Bilirubin Direct Bilirubin Neonat Total Bilirubin Neonat Direct Bilirubin Neonat Indirect Bili AST ALT Alkaline Phosphatase Creatine Kinase CK-MB (CK-2) Troponin I Total Protein Albumin Chest X-Ray 04/09/18 15:33 IMPRESSION: NO ACUTE RADIOGRAPHIC FINDING IN THE CHEST. Temp Pulse Resp BP Pulse Ox 98.0 F 93 20 126/69 H 95 04/09/18 14:53 04/09/18 14:53 04/09/18 18:01 04/09/18 18:01 04/09/18 18:01 72-year-old female presents with complaint of persistent cough and chest pressure. Patient's cough has been ongoing for 3 weeks. She initially states that her chest pressure was only present with coughing but over the last 3 days she describes a constant substernal pressure. CBC, CMP, cardiac enzymes are unremarkable. Chest x-ray shows no evidence of pneumonia P lung exam after breathing treatment showed resolution of wheezing. Discussed antibiotics with the patient decided that because the patient's fever, myalgia that she was experiencing last week have resolved and her chest x-ray showed no evidence of pneumonia that we would not prescribe antibiotics at this time. Patient was provided an albuterol MDI in the department. Recommended Coricidin cough medicine due to patient's high blood pressure. Patient advised to follow-up with her primary care physician in the next 24-48 hours. 04/09/18 18:40 Patient reevaluated and reports improvement of her chest congestion, cough after receiving a breathing treatment. 04/09/18 18:42 Patient's glucose was found to be 69. She was given orange juice, crackers and repeat Accu-Chek is 102. 04/10/18 00:18 Patient was evaluated and treated as appropriate for the patient's presenting symptoms and complaint, with consideration of any critical or life threatening conditions that may be associated with their obtained history and exam as noted above. All results were discussed with patient and her who is at the bedside. Patient provided the opportunity to ask questions, and express concerns. Patient was educated on treatments based on their presumed diagnosis as noted above. At this time we will discharge the patient with return pre cautions and follow-up recommendations. Verbal discharge instructions given a the bedside. Medication warnings reviewed. Patient is in agreement with this plan and has verbalized understanding of return precautions. After careful consideration I feel that that patient can be safely discharged from the emergency department, they were advised to followup with a primary care physician in 2-3 days. Dictation on this chart was performed using voice recognition software and may result in unintended grammatical, spelling, syntax or errors. - Vital Signs Vital signs: Temp Pulse Resp BP Pulse Ox 98.0 F 93 24 H 125/78 96 04/09/18 19:19 04/09/18 14:53 04/09/18 19:01 04/09/18 19:01 04/09/18 19:19 - Laboratory Result Diagrams: 04/09/18 16:14 04/09/18 16:14 Laboratory results interpreted by me: 04/09/18 16:14 BUN 21 H Glucose 69 L - Diagnostic Test Radiology reviewed: Image reviewed, Reports reviewed - EKG Interpretation by Me EKG shows normal: Sinus rhythm Rate: Normal [place]/QRS: RBBB Voltage: Consistant with LVH When compared to previous EKG there are: No significant change Discharge - Discharge Clinical Impression: Bronchitis Chest pain Qualifiers: Chest pain type: unspecified Qualified Code(s): R07.9 - Chest pain, unspecified HTN (hypertension) Qualifiers: Hypertension type: unspecified Qualified Code(s): I10 - Essential (primary) hypertension Condition: Good Disposition: HOME, SELF-CARE Instructions: Bronchitis With Bronchospasm (Wheezing) ([facility]) Additional Instructions: You were seen today for chest pain. The exact cause of your pain is unclear. However, based on your cardiac enzyme testing, chest x-ray, and EKG it does not appear that it is from an immediately life-threatening cause at this time. Although your testing here is normal is critical that you follow-up with your primary care physician for continued evaluation of this chest pain and possible stress testing. I recommended you see your physician within the next 24-48 hours to be evaluated for consideration of a stress test. Please return to [facility] department immediately if you have worsening of your chest pain, shortness of breath, vomiting, become unable to exert yourself due to pain or difficulty breathing, you pass out, or have any pain that radiates into your arms, jaw, or back. Please also return if you have any additional symptoms that are concerning to you. You were seen for symptoms most consistent with bronchitis. This can take up to 12 weeks to fully resolve. This is generally due to a viral infection. Please follow-up with your primary doctor in the next 2-3 days. Return if you develop worsening cough, vomiting, fever >100.4, pass out, begin coughing blood, or have any other symptoms that are concerning to you. Please use the medications prescribed today as directed. Follow up with your [id number] hours for further care or return to the ED IMMEDIATELY if symptoms worsen or you have any concerns. If you cannot afford to follow up with your primary care physician a list of low cost clinics have been provided at the end of your discharge papers as well. Most prescribed medications have multiple side effects. The safest thing to do is when filling your prescription speak to your pharmacist regarding possible interactions with your normal home medications and over the counter medications such as Ibuprofen, Tylenol, Benadryl. If you experience any symptoms that cause you discomfort or concern you should discontinue the medication immediately and return to the emergency room or call your primary care physician. Prescriptions: Chlorpheniramine/Dextromethorp [Coricidin Hbp Cough & Cold Tab] 1 each PO ASDIR PRN #14 tablet PRN Reason: Forms: Elevated Blood Pressure Referrals: SIMIN KHALIL MD [Primary Care Provider] - Follow up as needed
[2018-04-09 16:32] LABS: ABSOLUTE EOSINOPHILS # (AUTO) 0.1 10^3/uL (0.0-0.6); ABSOLUTE LYMPHOCYTES (AUTO) 1.4 10^3/uL (0.5-4.7); ABSOLUTE MONOCYTES (AUTO) 0.6 10^3/uL (0.1-1.4); BASOPHILS % (AUTO) 0.6 % (0-2); EOSINOPHILS % (AUTO) 1.7 % (0-6); HEMATOCRIT 39.7 % (36.0-47.0); HEMOGLOBIN 13.9 g/dL (12.0-15.5); LYMPHOCYTES % (AUTO) 23.1 % (13-45); MEAN CORPUSCULAR HEMOGLOBIN 31.2 pg (27.0-33.4); MEAN CORPUSCULAR HGB CONC 34.9 g/dL (32.0-36.0); MEAN CORPUSCULAR VOLUME 90 fl (80-97); MONOCYTES % (AUTO) 10.2 % (3-13); PLATELET COUNT 167 10^3/uL (150-450); RED BLOOD COUNT 4.44 10^6/uL (3.72-5.28); SEGMENTED NEUTROPHILS % (AUTO) 64.4 % (42-78); TOTAL CELLS COUNTED % (AUTO) 100 %; WHITE BLOOD COUNT 6.2 10^3/uL (4.0-10.5)
--- NOTE | 2018-04-09 16:39 | RADIOLOGY REPORT (SQ) ---
EXAM DESCRIPTION: CHEST 2 VIEWS COMPLETED DATE/TIME: 04/09/2018 4:22 pm REASON FOR STUDY: cough COMPARISON: 06/08/2017 EXAM PARAMETERS: NUMBER OF VIEWS: two views TECHNIQUE: Digital Frontal and Lateral radiographic views of the chest acquired. RADIATION DOSE: NA LIMITATIONS: none FINDINGS: LUNGS AND PLEURA: No opacities, masses or pneumothorax. No pleural effusion. MEDIASTINUM AND HILAR STRUCTURES: No masses or contour abnormalities. HEART AND VASCULAR STRUCTURES: Heart normal size. No evidence for failure. BONES: No acute findings. HARDWARE: None in the chest. OTHER: No other significant finding. IMPRESSION: NO ACUTE RADIOGRAPHIC FINDING IN THE CHEST. TECHNICAL DOCUMENTATION: JOB ID: [id number] [employer]- All Rights Reserved Reading location - IP/workstation name: [email or web address]
[2018-04-09 16:51] LABS: ALANINE AMINOTRANSFERASE 25 U/L (9-52); ALBUMIN 4.3 g/dL (3.5-5.0); ALKALINE PHOSPHATASE 56 U/L (38-126); ANION GAP 10 (5-19); ASPARTATE AMINO TRANSFERASE 22 U/L (14-36); BILIRUBIN,DIRECT 0.3 mg/dL (0.0-0.4); BILIRUBIN,TOTAL 0.5 mg/dL (0.2-1.3); BLOOD UREA NITROGEN 21 mg/dL (7-20); CALCIUM 9.6 mg/dL (8.4-10.2); CARBON DIOXIDE 28 mmol/L (22-30); CHLORIDE 103 mmol/L (98-107); CREATINE KINASE 52 U/L (30-135); POTASSIUM 3.7 mmol/L (3.6-5.0); SODIUM 141.4 mmol/L (137-145); TOTAL PROTEIN 6.6 g/dL (6.3-8.2)
[2018-04-09 16:52] LABS: GLUCOSE 69 mg/dL (75-110)
[2018-04-09 17:03] LABS: TROPONIN I < 0.012 ng/mL
[2018-04-09] MEDS ORDERED: ALBUTEROL SULFATE HFA (90 MCG/PUFF) 8 GM MDI (1 MDI/ER DISP) IH PRN (18:41)
[2018-04-09 19:13] VITALS: BP 125/78
--- NOTE | 2018-04-09 21:48 | EKG REPORT ---
SEVERITY:- ABNORMAL ECG - SINUS RHYTHM RBBB AND LAFB PROBABLE LEFT VENTRICULAR HYPERTROPHY : Confirmed by: Radha Sharp MD 09-Apr-2018 21:47:53
== END 2018-04-09 19:27 | disposition home or self-care (01) ==
LOC: ER 14:41
DX: J40 Bronchitis, not specified as acute or chronic (principal); R07.9 Chest pain, unspecified; R68.89 Other general symptoms and signs; M79.10 Myalgia, unspecified site; E78.00 Pure hypercholesterolemia, unspecified; I10 Essential (primary) hypertension; E10.9 Type 1 diabetes mellitus without complications; Z87.442 Personal history of urinary calculi
CPT/HCPCS: 93005; 94640; 99284; 36415; 82553; 82962; 82550; 85025; 80053; 84484; 71046; 93010; A9270 ×2; J3490; J7620

== ENCOUNTER → 2018-04-26 | Outpatient (CLI) | payer MEDICARE, OTHER | LOC: OD 11:56 | PROVIDERS: ATTEND Nurse Practitioner Acute Care | DX: R30.0 Dysuria (principal) | CPT/HCPCS: 87086; 87088; 87186 ==

== ENCOUNTER → 2018-06-29 | Outpatient (CLI) | payer MEDICARE, OTHER ==
--- NOTE | 2018-06-29 11:08 | WOMENS IMAGING REPORT ---
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 TECHNIQUE: Dual-Energy X-ray Absorptiometry (DEXA) of the AP Spine and Hip. LIMITATIONS: None. FINDINGS: LUMBAR SPINE: The bone mineral density (BMD) measured from L1-L4 in the AP projection correlates with a T-score of +0.8, which is normal as defined by the World Health Organization. HIP: The bone mineral density (BMD) measured in the left femoral neck at the hip correlates with a T-score of +0.3, which is normal as defined by the World Health Organization. IMPRESSION: 1. LUMBAR SPINE: Normal 2. HIP: Normal COMMENT: The World Health Organization defines low BMD as follows: T-score: Normal: Greater than -1.0 Osteopenia: Between -1.0 and -2.5 Osteoporosis: Less than -2.5 without fractures Established osteoporosis: Less than -2.5 with fractures In general, you may wish to consider: Diagnosis Treatment Follow-up DEXA Normal BMD Prevention 2-3 years Osteopenia Prevention/Therapy 1-2 years Osteoporosis Therapy Yearly TECHNICAL DOCUMENTATION: JOB ID: [id number] 8469[facility]- All Rights Reserved Reading location - IP/workstation name: [email or web address]
--- NOTE | 2018-06-29 11:11 | WOMENS IMAGING REPORT ---
EXAM DESCRIPTION: BILAT SCREENING MAMMO W/CAD COMPLETED DATE/TIME: 06/29/2018 10:33 am REASON FOR STUDY: ROUTINE BILATERAL SCREENING;Z12.31Z12.31 ENCNTR SCREEN MAMMOGRAM FOR MALIGNANT NE OPLASM OF BREM81.0 AGE-RELATED OSTEOPOROSIS W/O CURRENT PATHOLOGICAL FRAC COMPARISON: Multiple since 2015 EXAM PARAMETERS: Standard craniocaudal and mediolateral oblique views of each breast recorded using digital acquisition. Read with the assistance of CAD. .[facility] - [employer] Electrophysiology Nurse Practitioner Version 9.2 LIMITATIONS: None. FINDINGS: RIGHT BREAST MASSES: 5 to 6 mm nodule in the far right lateral breast 9 to 10 o'clock position 7 to 10 cm from the nipple. Ultrasound of this probable breast cyst in the right lateral breast is recommended for furt her evaluation. CALCIFICATIONS: No new or suspicious calcifications. ARCHITECTURAL DISTORTION: None. DEVELOPING DENSITY: None. ASYMMETRY: None noted. OTHER: No other significant findings. LEFT BREAST MASSES: No suspicious masses. CALCIFICATIONS: No new or suspicious calcifications. ARCHITECTURAL DISTORTION: None. DEVELOPING DENSITY: None. ASYMMETRY: None noted. OTHER: No other significant findings. IMPRESSION: 5 to 6 mm mammographic nodule right breast laterally for which ultrasound is recommended for further characterization No mammographic evidence for malignancy left breast Assessment: 0 Incomplete: Needs Additional Imaging Evaluation and/or prior Mammograms for Comparison. BREAST DENSITY: b. There are scattered areas of fibroglandular density. BIRAD: 0 Incomplete: Needs Additional Imaging Evaluation and/or prior Mammograms for Comparison. RECOMMENDATION: RECOMMENDED FOLLOW-UP: Additional right breast diagnostic ultrasound far lateral 9 t o 10 o'clock position The patient will be contacted for additional imaging. COMMENT: The patient has been notified of the results by letter per MQSA requirements. Additional no tification policies are in place for contacting patient with suspicious or incomplete findings. Quality ID #225: The [employer] recommends an annual screening mammogram for women aged 40 years or over. This facility utilizes a reminder system to ensure that all patients receive reminder letters, and/or direct phone calls for appointments. This includes reminders for routine scr eening mammograms, diagnostic mammograms, or other Breast Imaging Interventions when appropriate. Th is patient will be placed in the appropriate reminder system. TECHNICAL DOCUMENTATION: FINDING NUMBER: (1) ASSESSMENT: (1) JOB ID: [id number] [employer]- All Rights Reserved Reading location - IP/workstation name: [email or web address]
== END ==
LOC: WI 10:33
PROVIDERS: ATTEND Family Medicine
DX: Z12.31 Encounter for screening mammogram for malignant neoplasm of breast (principal); M81.0 Age-related osteoporosis without current pathological fracture
CPT/HCPCS: 77067; 77080

== ENCOUNTER → 2018-07-18 | Outpatient (CLI) | payer MEDICARE, OTHER ==
--- NOTE | 2018-07-18 14:16 | WOMENS IMAGING REPORT ---
EXAM DESCRIPTION: U/S BREAST UNILAT LIMITED COMPLETED DATE/TIME: 07/18/2018 1:14 pm REASON FOR STUDY: N63.11 UNSPECIFIED LUMP IN THE RIGHT BREAST, UPPER OUTER QUADRANT N63.11 UNSPECIF IED LUMP IN THE RIGHT BREAST, UPPER OUTER TONY COMPARISON: Mammogram 06/29/2018 TECHNIQUE: Real-time and static grayscale imaging performed of the right breast targeted to the area of clinical/mammographic concern. Selected color Doppler images recorded. LIMITATIONS: None. FINDINGS: MASS: In the 9 o'clock position, there are 2 cysts, the largest 5 mm. No solid or suspici ous lesion. OTHER: No other significant finding. IMPRESSION: Benign cysts. BIRAD: 2 Benign findings. RECOMMENDATION: RECOMMENDED FOLLOW-UP: Annual mammographic follow-up. COMMENT: The [employer] (ACR) has developed recommendations for screening MRI of the breasts in certain patient populations, to be used in conjunction with mammography. Breast MRI s urveillance may be appropriate for women with more than 20% lifetime risk of developing breast cancer as determined by genetic testing, significant family history of the disease, or history of mantle r adiation for Hodgkins Disease. ACR Practice Guidelines 2008. TECHNICAL DOCUMENTATION: JOB ID: [id number] [employer]- All Rights Reserved Reading location - IP/workstation name: [email or web address]
== END ==
LOC: WI 12:53
PROVIDERS: ATTEND Family Medicine
DX: N60.01 Solitary cyst of right breast (principal)
CPT/HCPCS: 76642

== ENCOUNTER → 2019-08-23 | Outpatient (CLI) | payer MEDICARE, OTHER ==
--- NOTE | 2019-08-26 08:32 | WOMENS IMAGING REPORT ---
EXAM DESCRIPTION: 3D SCREENING MAMMO BILAT IMAGES COMPLETED DATE/TIME: 08/23/2019 10:00 am REASON FOR STUDY: Z12.31 ENCNTR SCREEN MAMMOGRAM FOR MALIGNANT NEOPLASM OF BREAST Z12.31 ENCNTR SCR EEN MAMMOGRAM FOR MALIGNANT NEOPLASM OF MITZI COMPARISON: 2017 and subsequent. EXAM PARAMETERS: Standard craniocaudal and mediolateral oblique views of each breast recorded using digital acquisition and breast tomosynthesis. Read with the assistance of CAD. .[facility] - [employer] Version 9.2 LIMITATIONS: None. FINDINGS: Findings present which are benign by mammographic criteria. No suspicious masses, calcific ations or architectural distortion. Pertinent benign findings: Scattered benign stable calcifications. Stable partially circumscribed fo louann asymmetries. Benign mammographic findings may include one or more of the following: Smooth masses, popcorn/rim/coa rse calcifications, asymmetries, post-procedure changes, and lesions with long-standing stability. IMPRESSION: BENIGN MAMMOGRAPHIC FINDINGS. BIRADS 2 BREAST DENSITY: b. There are scattered areas of fibroglandular density. BIRAD: ASSESSMENT: 2 BENIGN FINDING(S) RECOMMENDATION: ROUTINE SCREENING COMMENT: The patient has been notified of the results by letter per MQSA requirements. Additional no tification policies are in place for contacting patient with suspicious or incomplete findings. Quality ID #225: The [employer] recommends an annual screening mammogram for women aged 40 years or over. This facility utilizes a reminder system to ensure that all patients receive reminder letters, and/or direct phone calls for appointments. This includes reminders for routine scr eening mammograms, diagnostic mammograms, or other Breast Imaging Interventions when appropriate. Th is patient will be placed in the appropriate reminder system. TECHNICAL DOCUMENTATION: FINDING NUMBER: (1) ASSESSMENT: (1) JOB ID: [id number] 2010 [employer]- All Rights Reserved Reading location - IP/workstation name: [email or web address]
== END ==
LOC: WI 09:28
PROVIDERS: ATTEND Family Medicine
DX: Z12.31 Encounter for screening mammogram for malignant neoplasm of breast (principal)
CPT/HCPCS: 77063; 77067